=== PATIENT | male | born 1980 | race Hispanic/Latino ===

== ENCOUNTER 2022-09-01 09:20 | Emergency (ER) | payer OTHER ==
[~2022-09-01] VITALS: Ht 165.1 cm; Wt 113.4 kg
[2022-09-01 09:22] VITALS: BP 131/78
[2022-09-01 09:51] LABS: BASOPHILS % (AUTO) 0.4 % (0.0-5.0); EOSINOPHILS % (AUTO) 1.1 % (0.0-8.0); HEMATOCRIT 41.4 % (42-54); LYMPHOCYTES % (AUTO) 33.4 % (21.0-51.0); MEAN CORPUSCULAR HEMOGLOBIN 29.4 pg (27.0-33.0); MEAN CORPUSCULAR HGB CONC 34.5 g/dL (32.0-36.0); MONOCYTES % (AUTO) 6.1 % (3.0-13.0); NEUTROPHILS % (AUTO) 58.8 % (40.0-77.0); PLATELET COUNT (AUTO) 219 K/uL (130-400); RED BLOOD CELL COUNT(AUTO) 4.87 MIL/uL (4.50-6.20); RED CELL DISTRIBUTION WIDTH 12.7 % (11.0-15.5); WHITE BLOOD COUNT (AUTO) 8.3 K/uL (4.8-10.8)
[2022-09-01 10:00] LABS: CREATININE 1.3 mg/dL (0.5-1.5); POTASSIUM 3.8 mmol/L (3.5-5.1)
[2022-09-01 10:04] LABS: ALBUMIN 4.2 g/dL (3.5-5.0); TOTAL PROTEIN, SERUM 8.1 g/dL (6.0-8.3)
[2022-09-01 10:05] LABS: APPEARANCE,URINE CLEAR (CLEAR); BILIRUBIN,URINE NEGATIVE (NEGATIVE); COLOR,URINE COLORLESS (YELLOW); GLUCOSE, URINE (UA) NEGATIVE (NEGATIVE); KETONES,URINE NEGATIVE (NEGATIVE); LEUKOCYTE ESTERASE ,URINE NEGATIVE Leu/uL (NEGATIVE); NITRATE,URINE NEGATIVE (NEGATIVE); OCCULT BLOOD,URINE NEGATIVE (NEGATIVE); PROTEIN,URINE NEGATIVE (NEGATIVE); SQUAMOUS EPITHELIAL CELL,UR RARE /HPF (0-2); UROBILINOGEN,URINE 0.2 mg/dL (0.2-1.0); WBC,URINE 0-1 /HPF (0-1)
[2022-09-01] MEDS ORDERED: NAPR-1196 PO (11:59)
[2022-09-01] MEDS ORDERED: AMOX1TAB16 PO (11:59)
[2022-09-01] MEDS ORDERED: AMOX/CLAV 875/125MG TAB PO ONE (12:00)
== END 2022-09-01 12:11 | disposition home or self-care (01) ==
LOC: EDH 09:20
DX: K52.9 Noninfective gastroenteritis and colitis, unspecified (principal); J45.909 Unspecified asthma, uncomplicated; E11.9 Type 2 diabetes mellitus without complications; E78.00 Pure hypercholesterolemia, unspecified; I10 Essential (primary) hypertension; Z98.890 Other specified postprocedural states
CPT/HCPCS: 36415; 74176; 80053; 81001; 83690; 85025

== ENCOUNTER 2023-01-04 23:51 | Emergency (ER) | payer BC, OTHER ==
[~2023-01-04] VITALS: Ht 165.1 cm; Wt 116.1 kg
[~2023-01-04 23:51] MED LIST: AMOX1TAB16 PO; NAPR-1196 PO
[2023-01-05 00:54] LABS: BASOPHILS % (AUTO) 0.3 % (0.0-5.0); EOSINOPHILS % (AUTO) 1.2 % (0.0-8.0); HEMATOCRIT 36.9 % (42-54); MEAN CORPUSCULAR HGB CONC 33.9 g/dL (32.0-36.0); MEAN CORPUSCULAR VOLUME 88.7 fL (79-99); MONOCYTES % (AUTO) 6.3 % (3.0-13.0); NEUTROPHILS % (AUTO) 71.6 % (40.0-77.0); PLATELET COUNT (AUTO) 232 K/uL (130-400); RED BLOOD CELL COUNT(AUTO) 4.16 MIL/uL (4.50-6.20); RED CELL DISTRIBUTION WIDTH 13.1 % (11.0-15.5); WHITE BLOOD COUNT (AUTO) 9.6 K/uL (4.8-10.8)
[2023-01-05 01:03] LABS: CREATININE 1.6 mg/dL (0.5-1.5); POTASSIUM 3.6 mmol/L (3.5-5.1)
[2023-01-05 01:08] LABS: ALBUMIN 3.8 g/dL (3.5-5.0); TOTAL PROTEIN, SERUM 7.1 g/dL (6.0-8.3)
[2023-01-05 01:17] LABS: APPEARANCE,URINE CLEAR (CLEAR); BILIRUBIN,URINE NEGATIVE (NEGATIVE); COLOR,URINE COLORLESS (YELLOW); GLUCOSE, URINE (UA) NEGATIVE (NEGATIVE); KETONES,URINE NEGATIVE (NEGATIVE); LEUKOCYTE ESTERASE ,URINE NEGATIVE Leu/uL (NEGATIVE); NITRATE,URINE NEGATIVE (NEGATIVE); OCCULT BLOOD,URINE NEGATIVE (NEGATIVE); PROTEIN,URINE NEGATIVE (NEGATIVE); UROBILINOGEN,URINE 0.2 mg/dL (0.2-1.0)
[2023-01-05 03:48] VITALS: BP 142/87
== END 2023-01-05 04:35 | disposition home or self-care (01) ==
LOC: EDH 23:51
DX: R68.83 Chills (without fever) (principal); T50.905A Adverse effect of unspecified drugs, medicaments and biological substances, initial encounter; I10 Essential (primary) hypertension; E11.9 Type 2 diabetes mellitus without complications; Z79.1 Long term (current) use of non-steroidal anti-inflammatories (NSAID); Z79.2 Long term (current) use of antibiotics; Y92.89 Other specified places as the place of occurrence of the external cause
CPT/HCPCS: 36415; 80053; 81003; 85025

== ENCOUNTER 2023-03-12 08:29 | Emergency (ER) | payer BC ==
[~2023-03-12] VITALS: Ht 165.1 cm; Wt 120.2 kg
[2023-03-12 08:34] VITALS: BP 148/89
[2023-03-12] MEDS ORDERED: KETOROLAC 15MG/ML VIAL (15MG/ML) IV ONE (09:00)
[2023-03-12] MEDS ORDERED: 0.9%NACL 1000ML 1,000 ML IV ONE (09:00)
[2023-03-12 09:03] LABS: BASOPHILS % (AUTO) 0.4 % (0.0-5.0); HEMATOCRIT 40.2 % (42-54); LYMPHOCYTES % (AUTO) 38.8 % (21.0-51.0); MEAN CORPUSCULAR HEMOGLOBIN 30.1 pg (27.0-33.0); MEAN CORPUSCULAR HGB CONC 34.6 g/dL (32.0-36.0); MONOCYTES % (AUTO) 7.2 % (3.0-13.0); NEUTROPHILS % (AUTO) 51.3 % (40.0-77.0); PLATELET COUNT (AUTO) 192 K/uL (130-400); RED BLOOD CELL COUNT(AUTO) 4.62 MIL/uL (4.50-6.20); RED CELL DISTRIBUTION WIDTH 12.9 % (11.0-15.5); WHITE BLOOD COUNT (AUTO) 6.9 K/uL (4.8-10.8)
[2023-03-12 09:09] LABS: APPEARANCE,URINE CLEAR (CLEAR); BILIRUBIN,URINE NEGATIVE (NEGATIVE); COLOR,URINE COLORLESS (YELLOW); GLUCOSE, URINE (UA) NEGATIVE (NEGATIVE); KETONES,URINE NEGATIVE (NEGATIVE); LEUKOCYTE ESTERASE ,URINE NEGATIVE Leu/uL (NEGATIVE); NITRATE,URINE NEGATIVE (NEGATIVE); OCCULT BLOOD,URINE NEGATIVE (NEGATIVE); PH,URINE 5.5 (5.0-8.0); PROTEIN,URINE NEGATIVE (NEGATIVE); UROBILINOGEN,URINE 0.2 mg/dL (0.2-1.0)
[2023-03-12 09:12] LABS: CREATININE 1.4 mg/dL (0.5-1.5); POTASSIUM 3.9 mmol/L (3.5-5.1)
[2023-03-12 09:16] LABS: ALBUMIN 4.1 g/dL (3.5-5.0); TOTAL PROTEIN, SERUM 7.6 g/dL (6.0-8.3)
[2023-03-12] MEDS ORDERED: METH-812 PO (09:44)
[2023-03-12] MEDS ORDERED: DICL75TA5 PO (09:44)
== END 2023-03-12 10:10 | disposition home or self-care (01) ==
LOC: EDH 08:51
DX: M54.50 Low back pain, unspecified (principal); M54.16 Radiculopathy, lumbar region; I10 Essential (primary) hypertension; E78.00 Pure hypercholesterolemia, unspecified; E11.9 Type 2 diabetes mellitus without complications; M19.90 Unspecified osteoarthritis, unspecified site
CPT/HCPCS: 99284; 96374; 74150; 96361; 80053; 83690; 85025; 81003; 36415; J7030; J1885

== ENCOUNTER 2023-03-26 22:51 | Emergency (ER) | payer BC ==
[~2023-03-26] VITALS: Ht 165.1 cm; Wt 121.6 kg
[~2023-03-26 22:51] MED LIST changes: +DICL75TA5 PO; +METH-812 PO
[2023-03-26 23:29] LABS: CREATININE 1.3 mg/dL (0.5-1.5); POTASSIUM 3.7 mmol/L (3.5-5.1)
[2023-03-26 23:33] LABS: APPEARANCE,URINE CLEAR (CLEAR); BILIRUBIN,URINE NEGATIVE (NEGATIVE); COLOR,URINE COLORLESS (YELLOW); GLUCOSE, URINE (UA) NEGATIVE (NEGATIVE); KETONES,URINE NEGATIVE (NEGATIVE); LEUKOCYTE ESTERASE ,URINE NEGATIVE Leu/uL (NEGATIVE); NITRATE,URINE NEGATIVE (NEGATIVE); PROTEIN,URINE NEGATIVE (NEGATIVE); UROBILINOGEN,URINE 0.2 mg/dL (0.2-1.0)
[2023-03-26 23:34] LABS: ALBUMIN 4.3 g/dL (3.5-5.0); TOTAL PROTEIN, SERUM 7.8 g/dL (6.0-8.3)
[2023-03-26 23:37] LABS: OCCULT BLOOD,URINE NEGATIVE (NEGATIVE)
[2023-03-27] MEDS ORDERED: MORPHINE 4 MG SYG IVP ONE
[2023-03-27] MEDS ORDERED: 0.9%NACL 1000ML 1,000 ML IV ONE
[2023-03-27] MEDS ORDERED: ONDANSETRON 4MG INJ IVP ONE
[2023-03-27 00:45] LABS: BASOPHILS % (AUTO) 0.4 % (0.0-5.0); EOSINOPHILS % (AUTO) 2.5 % (0.0-8.0); HEMATOCRIT 37.9 % (42-54); LYMPHOCYTES % (AUTO) 38.7 % (21.0-51.0); MEAN CORPUSCULAR HEMOGLOBIN 29.8 pg (27.0-33.0); MEAN CORPUSCULAR HGB CONC 34.6 g/dL (32.0-36.0); MEAN CORPUSCULAR VOLUME 86.1 fL (79-99); MONOCYTES % (AUTO) 8.2 % (3.0-13.0); NEUTROPHILS % (AUTO) 50.1 % (40.0-77.0); PLATELET COUNT (AUTO) 194 K/uL (130-400); RED CELL DISTRIBUTION WIDTH 12.6 % (11.0-15.5); WHITE BLOOD COUNT (AUTO) 7.7 K/uL (4.8-10.8)
[2023-03-27] MEDS ORDERED: FAMO20TA8 PO (00:48)
[2023-03-27 00:53] VITALS: BP 156/88
== END 2023-03-27 01:04 | disposition home or self-care (01) ==
LOC: EDH 22:51
DX: K29.70 Gastritis, unspecified, without bleeding (principal); E78.00 Pure hypercholesterolemia, unspecified; I10 Essential (primary) hypertension; J45.909 Unspecified asthma, uncomplicated
CPT/HCPCS: 99284; 96374; 76705; 71045; 96361; 96375; 84484; 80053; 83690; 85025; 81003; 36415 ×2; 93005; J7030; J2405; J2270

== ENCOUNTER 2023-10-01 13:13 | Emergency (ER) | payer BC, OTHER ==
[~2023-10-01] VITALS: Ht 165.1 cm; Wt 121.6 kg
[~2023-10-01 13:13] MED LIST changes: +FAMO20TA8 PO
[2023-10-01 13:26] VITALS: BP 157/85; PULSE 86; RESP 18
[2023-10-01 14:49] LABS: BASOPHILS # (AUTO) 0.03 K/uL (0.00-0.20); BASOPHILS % (AUTO) 0.3 % (0.0-5.0); EOSINOPHILS # (AUTO) 0.09 K/uL (0.00-0.70); EOSINOPHILS % (AUTO) 0.8 % (0.0-8.0); HEMATOCRIT 40.8 % (42-54); IMMATURE GRANULOCYTE ABSOLUTE 0.05 K/uL (0-1); LYMPHOCYTES # (AUTO) 3.5 K/uL (1.0-4.8); LYMPHOCYTES % (AUTO) 31.3 % (21.0-51.0); MEAN CORPUSCULAR HEMOGLOBIN 29.2 pg (27.0-33.0); MEAN CORPUSCULAR HGB CONC 33.6 g/dL (32.0-36.0); MONOCYTES # (AUTO) 0.7 K/uL (0.1-1.0); MONOCYTES % (AUTO) 6.2 % (3.0-13.0); NEUTROPHILS # (AUTO) 6.8 K/uL (1.8-7.7); PLATELET COUNT (AUTO) 256 K/uL (130-400); RED BLOOD CELL COUNT(AUTO) 4.69 MIL/uL (4.50-6.20); RED CELL DISTRIBUTION WIDTH 12.7 % (11.0-15.5); WHITE BLOOD COUNT (AUTO) 11.2 K/uL (4.8-10.8)
[2023-10-01 14:51] LABS: APPEARANCE,URINE CLEAR (CLEAR); BILIRUBIN,URINE NEGATIVE (NEGATIVE); COLOR,URINE COLORLESS (YELLOW); GLUCOSE, URINE (UA) NEGATIVE (NEGATIVE); KETONES,URINE NEGATIVE (NEGATIVE); LEUKOCYTE ESTERASE ,URINE NEGATIVE Leu/uL (NEGATIVE); NITRATE,URINE NEGATIVE (NEGATIVE); PH,URINE 5.5 (5.0-8.0); PROTEIN,URINE NEGATIVE (NEGATIVE); UROBILINOGEN,URINE 0.2 mg/dL (0.2-1.0)
[2023-10-01 14:53] LABS: ADD UA MICROSCOPIC YES
[2023-10-01 14:54] LABS: SQUAMOUS EPITHELIAL CELL,UR RARE /HPF (0-2); WBC,URINE 0-1 /HPF (0-1)
[2023-10-01 14:59] LABS: CREATININE 1.6 mg/dL (0.5-1.5); POTASSIUM 3.7 mmol/L (3.5-5.1)
[2023-10-01 15:03] LABS: ALBUMIN 3.9 g/dL (3.5-5.0); BILIRUBIN,TOTAL 0.3 mg/dL (0.2-1.0); TOTAL PROTEIN, SERUM 7.8 g/dL (6.0-8.3)
[2023-10-01] MEDS ORDERED: CYCL-309 PO (17:29)
[2023-10-01] MEDS ORDERED: IBUP-2077 PO (17:29)
== END 2023-10-01 17:42 | disposition home or self-care (01) ==
LOC: EDH 13:13
DX: G89.29 Other chronic pain (principal); M54.50 Low back pain, unspecified; E11.65 Type 2 diabetes mellitus with hyperglycemia; D72.829 Elevated white blood cell count, unspecified; I10 Essential (primary) hypertension; E11.9 Type 2 diabetes mellitus without complications; E66.9 Obesity, unspecified; E78.00 Pure hypercholesterolemia, unspecified; Z79.899 Other long term (current) drug therapy; Z98.890 Other specified postprocedural states
CPT/HCPCS: 36415; 74176; 80053; 81001; 83690; 85025

== ENCOUNTER 2024-03-12 02:44 | Emergency (ER) | payer BC, OTHER ==
[~2024-03-12] VITALS: Ht 165.1 cm; Wt 115.7 kg
[~2024-03-12 02:44] MED LIST changes: +CYCL-309 PO; +IBUP-2077 PO
[2024-03-12] MEDS ORDERED: MELO10CA3 PO (03:50)
[2024-03-12 04:11] VITALS: BP 142/82; PULSE 84; RESP 16; O2SAT 99
== END 2024-03-12 04:12 | disposition home or self-care (01) ==
LOC: EDH 02:44
DX: S80.01XA Contusion of right knee, initial encounter (principal); E11.9 Type 2 diabetes mellitus without complications; E66.9 Obesity, unspecified; E78.00 Pure hypercholesterolemia, unspecified; I10 Essential (primary) hypertension; X58.XXXA Exposure to other specified factors, initial encounter; Y93.89 Activity, other specified; Y92.89 Other specified places as the place of occurrence of the external cause; Y99.8 Other external cause status

== ENCOUNTER 2025-01-03 13:59 | Emergency (ER) | payer BC ==
[~2025-01-03] VITALS: Ht 165.1 cm; Wt 117.9 kg
[~2025-01-03 13:59] MED LIST changes: -AMOX1TAB16 PO; -CYCL-309 PO; +CYCL10TA16 PO; -DICL75TA5 PO; -FAMO20TA8 PO; -IBUP-2077 PO; +KETO10TA2 PO; +MELO10CA3 PO; -METH-812 PO; -NAPR-1196 PO
--- NOTE | 2025-01-03 14:27 | ERN ---
ED Note History of Present Illness Stated Complaint: ABDOMINAL PAIN Chief Complaint: Abdominal Pain Time Seen by MD: 14:04 Dictation: PATIENT IS A 44-YEAR-OLD DIABETIC MALE COMING IN TODAY WITH COMPLAINTS OF EPIGASTRIC PAIN THAT RADIATES TO HIS RIGHT UPPER QUADRANT WITH NAUSEA VOMITING ONSET WAS SATURDAY. HE STATES HE HAS A OCCASIONAL LEFT UPPER QUADRANT PAIN. NO FEVER NO CHILLS. STATES HIS BLOOD SUGAR WAS 1232 DAYS AGO IN HIS COMPLIANT WITH HIS MEDICATIONS. HE DID NOT GO SEE HIS PRIMARY CARE DOCTOR Allergies: Coded Allergies: No Known Drug Allergies (Verified Allergy, Unknown, 09/01/22) Home Meds Active Scripts Dicyclomine HCl (Bentyl) 20 Mg Tab, 20 MG PO Q6HPRN PRN for ABDOMINAL CRAMPS, #30 TAB Prov:PASCALE BYERS NP 01/03/25 Omeprazole (Omeprazole) 40 Mg Capsule.dr, 1 CAP PO DAILY for 30 Days, #30 CAP 0 Refills Prov:PASCALE BYERS NP 01/03/25 Cyclobenzaprine HCl (Flexeril) 10 Mg Tab, 10 MG PO BID for muscle sstiffness for 5 Days, #10 TAB 0 Refills Prov:MAIA GARCIA 09/16/24 Ketorolac Tromethamine (Ketorolac Tromethamine) 10 Mg Tablet, 10 MG PO BID for 5 Days, #10 TAB Prov:MAIA GARCIA 09/16/24 Meloxicam, Submicronized (Meloxicam) 10 Mg Capsule, 10 MG PO DAILY, #30 CAP Prov:YONATAN EVANS MD 03/12/24 Past Medical History Past Medical History: Diabetes-Type II, High Cholesterol, Hypertension, Other Additional Past Medical Hx: Lumbar Spine Herniated Discs, Obesity Surgical History: Other Surgical History Other: EYE,COLONOSCOPY,EGD Family History: Negative Social History: Negative, Lives with family RN Note Reviewed/Agreed w/PFSH: Yes Review of System Dictation CONSTITUTIONAL: NEGATIVE EXCEPT FOR HPI HEAD/FACE: NEGATIVE EXCEPT FOR HPI EENT: NEGATIVE EXCEPT FOR HPI RESPIRATORY: NEGATIVE EXCEPT FOR HPI GASTROINTESTINAL/ABDOMINAL: NEGATIVE EXCEPT FOR HPI EPIGASTRIC PAIN THAT RADIATES TO RIGHT UPPER QUADRANT NAUSEA VOMITING GENITOURINARY: NEGATIVE EXCEPT FOR HPI MUSCULOSKELETAL: NEGATIVE EXCEPT FOR HPI INTEGUMENTARY: NEGATIVE EXCEPT FOR HPI NEUROLOGICAL/PSYCH: NEGATIVE EXCEPT FOR HPI HEMATOLOGIC/LYMPHATIC: NEGATIVE EXCEPT FOR HPI ALL SYSTEMS NEGATIVE, EXCEPT NOTED ABOVE. 13 POINT REVIEW OF SYSTEMS ASSESSED AND ALL NEGATIVE EXCEPT FOR ABOVE. Initial Vital Sign VS Vital Signs Date Time Temp Pulse Resp B/P (MAP) Pulse Ox O2 Delivery O2 Flow Rate FiO2 01/03/25 14:01 98.2 76 18 135/74 98 Room Air Physical Exam Dictation VITAL SIGNS REVIEWED GENERAL APPEARANCE: ALERT, ORIENTED X 3, NO ACUTE DISTRESS, WELL DEVELOPED, NOURISHED. MORBID OBESITY HEAD AND FACE: NON-TRAUMATIC. EYES: PERRL, PINK CONJUNCTIVAS, EYELID NO TRAUMA, ANTERIOR CHAMBER WITH ARCUS SENILIS. EARS: PINNAS INTACT AND NO SIGNS OF TRAUMA OR ERYTHEMA EAR CANALS CLEAR AND NO DISCHARGE TM NO ERYTHEMA NOSE: NO DISCHARGE, NO BLEEDING. OROPHARYNX: MOUTH NORMAL, TONGUE PINK, PHARYNX CLEAR,NO ERYTHEMA, TONSILS NO EXUDATES, NO ABSCESSES NOTED, MUCOUS MEMBRANE MOIST NECK: SUPPLE, NON-TENDER, NO THYROMEGALY, NO MASSES, NO JVD, NO BRUITS BREAST:DEFERRED CHEST:NO TENDERNESS, NO CREPITUS, NO PARADOXICAL MOVEMENT, NO RETRACTIONS LUNGS:CLEAR, WELL-VENTILATED, SYMMETRIC, NO RALES, NO WHEEZING, NO RHONCHI, NO STRIDOR, GOOD BREATH SOUNDS BILATERALLY HEART: REGULAR RATE, REGULAR RHYTHM, NO MURMUR, NO GALLOPS VASCULAR: NO PERIPHERAL EDEMA, ABDOMEN: SOFT, POSITIVE BOWEL SOUNDS, NONDISTENDED, NO GUARDING, MILD EPIGASTRIC TENDERNESS, NEGATIVE RUSSO'S SIGN NEGATIVE REBOUND TENDERNESS RECTAL: DEFERRED GENITAL: DEFERRED NEUROLOGICAL: NORMAL SPEECH, MOTOR FUNCTION INTACT, SENSORY FUNCTION INTACT MUSCULOSKELETAL: NECK NONTENDER, FULL RANGE OF MOTION, BACK NONTENDER, FULL RANGE OF MOTION, EXTREMITIES: NONTENDER, FULL RANGE OF MOTION SKIN: COLOR PINK, DRY, NO TURGOR, NO RASH, NO LACERATIONS, NO ABRASIONS, NO CONTUSIONS. LYMPHATIC: DEFERRED Results (Laboratory/Radiology) Laboratory/Radiology Laboratory Tests Test 01/03/25 15:46 01/03/25 16:02 White Blood Count 8.3 K/uL (4.8-10.8) Red Blood Count 4.59 MIL/uL (4.50-6.20) Hemoglobin 13.9 g/dL (14.0-18.0) L Hematocrit 40.1 % (42-54) L Mean Corpuscular Volume 87.4 fL (79-99) Mean Corpuscular Hemoglobin 30.3 pg (27.0-33.0) Mean Corpuscular Hemoglobin Concent 34.7 g/dL (32.0-36.0) Red Cell Distribution Width 13.1 % (11.0-15.5) Platelet Count 233 K/uL (130-400) Mean Platelet Volume 10.1 fL (7.5-10.5) Immature Granulocyte % (Auto) 0.2 % (0-1) Neutrophils (%) (Auto) 56.3 % (40.0-77.0) Lymphocytes (%) (Auto) 35.5 % (21.0-51.0) Monocytes (%) (Auto) 6.8 % (3.0-13.0) Eosinophils (%) (Auto) 1.0 % (0.0-8.0) Basophils (%) (Auto) 0.2 % (0.0-5.0) Neutrophils # (Auto) 4.7 K/uL (1.8-7.7) Lymphocytes # (Auto) 3.0 K/uL (1.0-4.8) Monocytes # (Auto) 0.6 K/uL (0.1-1.0) Eosinophils # (Auto) 0.08 K/uL (0.00-0.70) Basophils # (Auto) 0.02 K/uL (0.00-0.20) Absolute Immature Granulocyte (auto 0.02 K/uL (0-1) Nucleated Red Blood Cells 0.0 % (0.0-0.19) Sodium Level 142 mmol/L (136-145) Potassium Level 3.6 mmol/L (3.5-5.1) Chloride Level 103 mmol/L (101-111) Carbon Dioxide Level 34 mmol/L (21-32) H Blood Urea Nitrogen 27 mg/dL (7-18) H Creatinine 1.3 mg/dL (0.5-1.3) Glomerular Filtration Rate Calc 69 mL/min (>90) Random Glucose 185 mg/dL (70-105) H Total Calcium 8.7 mg/dL (8.5-10.1) Lipase 43 U/L (16-77) Urine Color LIGHT-YELLOW (YELLOW) Urine Appearance CLEAR (CLEAR) Urine pH 5.5 (5.0-8.0) Urine Specific [place] 1.019 (1.001-1.031) Urine Protein NEGATIVE mg/dL (NEGATIVE) Urine Glucose (UA) NEGATIVE mg/dL (NEGATIVE) Urine Ketones NEGATIVE mg/dL (NEGATIVE) Urine Occult Blood SMALL (NEGATIVE) H Urine Nitrate NEGATIVE (NEGATIVE) Urine Bilirubin NEGATIVE mg/dL (NEGATIVE) Urine Urobilinogen 0.2 mg/dL (0.2-1.0) Urine Leukocyte Esterase NEGATIVE Zacarias/uL Urine RBC 0-1 /HPF (0-1) Urine WBC None /HPF (0-1) Urine Bacteria None /HPF (None Seen) US ABDOMINAL RUQ\E\LTD HISTORY: Adominal Pain TECHNIQUE: US ABDOMINAL RUQ\E\LTD. FINDINGS: LIVER: Diffuse increased echogenicity of the liver is seen suggestive of hepatic parenchymal disease, such as hepatic steatosis. Liver measures 18 cm. GALLBLADDER: Contracted gallbladder. No gallstone is seen. There is mild wall thickening. CBD: Measures up to 0.5cm. PANCREAS: The pancreas was not well visualized due to overlying bowel gas. RIGHT KIDNEY: measures 10cm in length. No hydronephrosis or calculi. IMPRESSION: Hepatomegaly with hepatic steatosis. Contracted gallbladder. No gallstone is seen. Labs Reviewed?: Yes ED Course ED Course Orders Procedure Category Date Status Time Cbc With Differential LAB 01/03/25 Complete 14:23 Urinalysis Profile LAB 01/03/25 Complete 14:23 Us Abdominal Ruq\Ltd US 01/03/25 Resulted 14:23 Lipase LAB 01/03/25 Complete 14:23 Basic Metabolic Panel LAB 01/03/25 Complete 14:23 0.9%Nacl 1000ml (Ns PHA 01/03/25 Complete 1000ml) 14:30 Ketorolac PHA 01/03/25 Complete Tromethamine 30mg/Ml 14:30 Ondansetron 4mg Inj PHA 01/03/25 Complete (Zofran 4mg Inj) 14:30 Current Medications Medications (Trade) Dose Ordered Sig/Harman Route PRN Reason Start Time Stop Time Status Last Admin Dose Admin Ketorolac Tromethamine (toRADol) 30 mg ONCE ONCE IVP 01/03/25 14:30 01/03/25 16:49 DC Ondansetron HCl (zoFRAN 4MG INJ) 4 mg ONCE ONCE IVP 01/03/25 14:30 01/03/25 16:49 DC Sodium Chloride 1,000 ml @ 0 mls/hr ONCE ONCE IV 01/03/25 14:30 01/03/25 16:49 DC Vital Signs Date Time Temp Pulse Resp B/P (MAP) Pulse Ox O2 Delivery O2 Flow Rate FiO2 01/03/25 14:01 98.2 76 18 135/74 98 Room Air 1645/WORKUP IS NEGATIVE. PATIENT HAS A FATTY LIVER PATIENT WILL BE DISCHARGED HOME WITH FATTY LIVER DISEASE AND BILIARY COLIC SYMPTOMS. HE WILL BE SENT HOME WITH BENTYL AND OMEPRAZOLE TOLD TO SEE HIS PRIMARY CARE DOCTOR SATURDAY WITHOUT FAIL FOR FOLLOW UP AND MANAGEMENT Medical Decision Making MDM MEDICAL DISCHARGE MAKING BASED ON BASIC LABS FOR ABDOMINAL PAIN AND ULTRASOUND RIGHT UPPER QUADRANT. ULTRASOUND DEMONSTRATES FATTY LIVER ONLY. LABS UNREMARKABLE, NO ELEVATED LIPASE. PATIENT DISCHARGED HOME WITH BENTYL AND OMEPRAZOLE TOLD TO SEE HIS PRIMARY CARE DOCTOR. DX & DISP Disposition: Discharge Departure Impression: Primary Impression: Biliary colic symptom Additional Impressions: Fatty liver, Uncontrolled diabetes mellitus, Stage 2 chronic kidney disease Condition: Stable Scripts Dicyclomine HCl (Bentyl) 20 Mg Tab 20 MG PO Q6HPRN PRN for ABDOMINAL CRAMPS, #30 TAB Prov: PASCALE BYERS BAIT PACKER 01/03/25 Omeprazole (Omeprazole) 40 Mg Capsule.dr 1 CAP PO DAILY for 30 Days, #30 CAP 0 Refills Prov: PASCALE BYERS NP 01/03/25 Additional Instructions: FOLLOW-UP WITH PRIMARY CARE PROVIDER IN 1 TO 2 DAYS. TAKE MEDICATIONS DIRECTED HERE IN THE EMERGENCY ROOM. OKAY TO CONTINUE HOME MEDICATIONS UNLESS OTHERWISE DISCUSSED DURING YOUR VISIT IN THE EMERGENCY ROOM TODAY. RETURN TO YOUR NEAREST EMERGENCY ROOM IF SYMPTOMS WORSEN OR IF THERE IS NO IMPROVEMENT. CALL 911 IF YOU NEED IMMEDIATE ASSISTANCE. TAKE TYLENOL OR MOTRIN [id number] NEEDED AND IF NO CONTRAINDICATIONS ARE PRESENT. INCREASE ORAL HYDRATION. A WOUND CULTURE OR URINE CULTURE WAS ORDERED HERE IN THE EMERGENCY ROOM DEPARTMENT PLEASE FOLLOW-UP WITH PRIMARY CARE PROVIDER AND ADVISE THEM TO GET REPEAT PORTS FROM OUR FACILITY. IF YOU HAD ANY RENITA WRAP/SPLINTS THAT WERE APPLIED HERE, PLEASE DO NOT REMOVE THEM UNTIL YOU SEE YOUR PRIMARY CARE OR SPECIALTY. FOLLOW A BLAND, LOW-FAT DIET WITH WATER FOR FLUIDS ONLY. NO SODA POP, NO ICE TEA, NO SPICY FOODS, NO ALCOHOL UNTIL CLEARED BY YOUR DOCTOR. Referrals: FLORIN SHEEHAN MD (PCP) Time of Disposition: 16:44 I have reviewed the case, and I agree with, Diagnosis and Plan PASCALE BYERS NP Jan 03, 2025 14:27
[2025-01-03] MEDS ORDERED: 0.9%NACL 1000ML 1,000 ML IV ONE (14:30)
[2025-01-03] MEDS ORDERED: ketOROlac 30MG VIAL (30MG/ML) IVP ONE (14:30)
[2025-01-03] MEDS ORDERED: ondanSETRON 4MG INJ IVP ONE (14:30)
--- NOTE | 2025-01-03 15:17 | HMCIMG ---
US ABDOMINAL RUQ\E\LTD HISTORY: Adominal Pain TECHNIQUE: US ABDOMINAL RUQ\E\LTD. FINDINGS: LIVER: Diffuse increased echogenicity of the liver is seen suggestive of hepatic parenchymal disease, such as hepatic steatosis. Liver measures 18 cm. GALLBLADDER: Contracted gallbladder. No gallstone is seen. There is mild wall thickening. CBD: Measures up to 0.5cm. PANCREAS: The pancreas was not well visualized due to overlying bowel gas. RIGHT KIDNEY: measures 10cm in length. No hydronephrosis or calculi. IMPRESSION: Hepatomegaly with hepatic steatosis. Contracted gallbladder. No gallstone is seen.
[2025-01-03 15:55] LABS: BASOPHILS # (AUTO) 0.02 K/uL (0.00-0.20); BASOPHILS % (AUTO) 0.2 % (0.0-5.0); EOSINOPHILS # (AUTO) 0.08 K/uL (0.00-0.70); HEMATOCRIT 40.1 % (42-54); IMMATURE GRANULOCYTE ABSOLUTE 0.02 K/uL (0-1); LYMPHOCYTES % (AUTO) 35.5 % (21.0-51.0); MEAN CORPUSCULAR HEMOGLOBIN 30.3 pg (27.0-33.0); MEAN CORPUSCULAR HGB CONC 34.7 g/dL (32.0-36.0); MEAN CORPUSCULAR VOLUME 87.4 fL (79-99); MONOCYTES # (AUTO) 0.6 K/uL (0.1-1.0); MONOCYTES % (AUTO) 6.8 % (3.0-13.0); NEUTROPHILS # (AUTO) 4.7 K/uL (1.8-7.7); NEUTROPHILS % (AUTO) 56.3 % (40.0-77.0); PLATELET COUNT (AUTO) 233 K/uL (130-400); RED BLOOD CELL COUNT(AUTO) 4.59 MIL/uL (4.50-6.20); RED CELL DISTRIBUTION WIDTH 13.1 % (11.0-15.5); WHITE BLOOD COUNT (AUTO) 8.3 K/uL (4.8-10.8)
[2025-01-03 16:02] LABS: CREATININE 1.3 mg/dL (0.5-1.3); POTASSIUM 3.6 mmol/L (3.5-5.1)
[2025-01-03 16:18] LABS: ADD UA MICROSCOPIC YES; APPEARANCE,URINE CLEAR (CLEAR); BILIRUBIN,URINE NEGATIVE (NEGATIVE); COLOR,URINE LIGHT-YELLOW (YELLOW); GLUCOSE, URINE (UA) NEGATIVE (NEGATIVE); KETONES,URINE NEGATIVE (NEGATIVE); LEUKOCYTE ESTERASE ,URINE NEGATIVE Leu/uL (NEGATIVE); NITRATE,URINE NEGATIVE (NEGATIVE); OCCULT BLOOD,URINE SMALL (NEGATIVE); PH,URINE 5.5 (5.0-8.0); PROTEIN,URINE NEGATIVE (NEGATIVE); UROBILINOGEN,URINE 0.2 mg/dL (0.2-1.0)
[2025-01-03 16:19] LABS: MUCUS,URINE RARE LPF (None Seen); RBC,URINE 0-1 /HPF (0-1)
[2025-01-03] MEDS ORDERED: DICY20TA2 PO (16:47)
[2025-01-03] MEDS ORDERED: OMEP40CA21 PO (16:47)
[2025-01-03] MEDS: DICYCLOMINE HCL 10 MG/5 ML ML PO ONE (17:40)
[2025-01-03] MEDS: MAG/ALUM/SIMETH 30 ML UDCUP PO ONE (17:40)
[2025-01-03] MEDS: LIDOCAINE HCL 2% VISCOUS 15 ML UDCUP PO ONE (17:40)
--- NOTE | 2025-01-03 17:45 | NUR ---
PT BROUGHT INTO INTERNAL WAITING AREA FOR MED PASS AND DC INSTRUCTIONS
[2025-01-03 17:48] VITALS: BP 130/60; PULSE 69; RESP 20; TEMP 98.4; O2SAT 98
== END 2025-01-03 17:50 | disposition home or self-care (01) ==
LOC: EDH 13:59
DX: K80.50 Calculus of bile duct without cholangitis or cholecystitis without obstruction (principal); K76.0 Fatty (change of) liver, not elsewhere classified; I12.9 Hypertensive chronic kidney disease with stage 1 through stage 4 chronic kidney disease, or unspecified chronic kidney disease; E11.22 Type 2 diabetes mellitus with diabetic chronic kidney disease; N18.2 Chronic kidney disease, stage 2 (mild); E11.65 Type 2 diabetes mellitus with hyperglycemia; E66.9 Obesity, unspecified; E78.00 Pure hypercholesterolemia, unspecified; Z79.1 Long term (current) use of non-steroidal anti-inflammatories (NSAID); Z79.899 Other long term (current) drug therapy
CPT/HCPCS: 36415; 76705; 80048; 81001; 83690; 85025; 99284

== ENCOUNTER 2025-01-11 14:40 | Emergency (ER) | payer BC ==
[~2025-01-11] VITALS: Ht 165.1 cm; Wt 117.9 kg
[~2025-01-11 14:40] MED LIST changes: +DICY20TA2 PO; +OMEP40CA21 PO
[2025-01-11 14:45] VITALS: BP 126/85; PULSE 89; RESP 16; TEMP 98.2
--- NOTE | 2025-01-11 15:49 | HMCIMG ---
CT ABDOMEN/PELVIS W/O CONTRAST HISTORY: Renal stones COMPARISON: None TECHNIQUE: Multiple sequential axial images of the abdomen and pelvis were obtained from the dome of the diaphragm through symphysis pubis. Patient was not given contrast through intravenous route. Oral contrast was not given. FINDINGS: No pleural effusion is seen bilaterally. There is no evidence of parenchymal disease or pulmonary nodule of the visualized lower lungs. Degenerative changes of the thoracolumbar spine are present. The heart is not enlarged. Liver measures 15 cm. The liver, spleen, adrenal glands and pancreas are unremarkable. There is no evidence of hydronephrosis bilaterally. No evidence of renal stone is seen. Fecal material is seen in the colon. There are normal size retroperitoneal and mesenteric lymph nodes. No ascites is seen. Atherosclerotic changes are present. Pelvic sidewalls are symmetric bilaterally. Bladder is poorly distended. IMPRESSION: 1. No acute findings. CT was performed with one or more following dose reduction techniques: automated exposure control, adjustment of the mA and kv according to patient's size, or use of a iterative reconstruction technique.
--- NOTE | 2025-01-11 17:30 | ERN ---
ED Note History of Present Illness Stated Complaint: BACK PAIN,MULTIPLE COMPLAINTS Chief Complaint: Flank Pain Time Seen by MD: 15:06 Time Seen by Midlevel: 15:06 Dictation: The patient is a 48-year-old male with a history of diabetes, hypertension who presents to the emergency department with right flank pain radiating to the right lower quadrant onset two weeks ago. Patient reports nausea but no vomiting. Denies any hematuria, denies fevers, reports occasional diarrhea and constipation. Patient reports he has some lumbar spine herniated disc. Denies any urinary or fecal incontinence. Patient was seen here and was told he had problems with the gallstones but when he went to his primary doctor he was told he did not have any gallstones. Allergies: Coded Allergies: No Known Drug Allergies (Verified Allergy, Unknown, 09/01/22) Home Meds Active Scripts Dicyclomine HCl (Bentyl) 20 Mg Tab, 20 MG PO Q6HPRN PRN for ABDOMINAL CRAMPS, #30 TAB Prov:PASCALE BYERS NP 01/03/25 Omeprazole (Omeprazole) 40 Mg Capsule.dr, 1 CAP PO DAILY for 30 Days, #30 CAP 0 Refills Prov:PASCALE BYERS NP 01/03/25 Cyclobenzaprine HCl (Flexeril) 10 Mg Tab, 10 MG PO BID for muscle sstiffness for 5 Days, #10 TAB 0 Refills Prov:MAIA GARCIA 09/16/24 Ketorolac Tromethamine (Ketorolac Tromethamine) 10 Mg Tablet, 10 MG PO BID for 5 Days, #10 TAB Prov:MAIA GARCIA 09/16/24 Meloxicam, Submicronized (Meloxicam) 10 Mg Capsule, 10 MG PO DAILY, #30 CAP Prov:YONATAN EVANS MD 03/12/24 Past Medical History Past Medical History: Diabetes-Type II, Gallstones, High Cholesterol, Hypertension, Other Additional Past Medical Hx: Lumbar Spine Herniated Discs, Obesity Surgical History: Other Surgical History Other: EYE,COLONOSCOPY,EGD Family History: Negative Social History: Negative, Lives with family RN Note Reviewed/Agreed w/PFSH: Yes Review of System Dictation Constitutional: Negative for fever,chills, and weight loss Eyes: Negative for injury, pain,redness, and discharge ENT: Negative for injury,pain or swelling Cardiovascular: Negative for chest pain, palpitations, and edema Respiratory: Negative for shortness of breath, cough, and wheezing, Abdomen/GI: Negative for vomiting, diarrhea, and constipation positive for right lower abdominal pain, nausea Back: Negative for injury and pain : Negative for injury, bleeding and discharge positive for right flank pain MS/Extremity: Negative for injury and deformity Skin: Negative for rash, and discoloration Neuro: Negative for headache, weakness, numbness, tingling, and seizure Psych: Negative for suicide ideation, homicidal ideation, and hallucinations Initial Vital Sign VS Vital Signs Date Time Temp Pulse Resp B/P (MAP) Pulse Ox O2 Delivery O2 Flow Rate FiO2 01/11/25 14:45 98.2 89 16 126/85 97 Room Air 0 Physical Exam Dictation Vital Signs reviewed General Appearance: Alert, oriented x 3, no acute distress, well developed, no urished. Head and Face: non-traumatic. Eyes: PERRL, pink conjunctivas, eyelid no trauma, anterior chamber with arcus senilis. Ears: Pinnas intact and no signs of trauma or erythema ear canals clear and no discharge TM no erythema Nose: No discharge, no bleeding. Oropharynx: Mouth normal, tongue pink. pharynx clear,no erythema, tonsils no exudates, no abscesses noted, mucous me mbrane moist Neck: Supple, non-tender, no thyromegaly, no masses, no JVD, no bruits Breast:Deferred Chest:No tenderness, no crepitus, no paradoxical movement, no retractions Lungs:Clear, well-ventilated, symmetric, no rales, no wheezing, no rhonchi, no stridor, good breath sounds bilaterally Heart: Regular rate, regular rhythm, no murmur, no gallops Vascular: no peripheral edema, Abdomen: Soft, positive bowel sounds, nondistended, no guarding, nontender, no rebound, no masses no hepatomegaly, no splenomegaly, no Fraga's sign, no hernias. Rectal: Deferred Genital: Deferred Neurological: Normal speech, motor function intact, sensory function intact Musculoskeletal: Neck nontender, full range of motion, back nontender, full range of motion, Extremities: nontender, full range of motion Skin: Color pink, dry, no turgor, no rash, no lacerations, no abrasions, no contusions. Lymphatic: Deferred Results (Laboratory/Radiology) Laboratory/Radiology Laboratory Tests Test 01/11/25 17:26 01/11/25 18:40 White Blood Count 9.2 K/uL (4.8-10.8) Red Blood Count 4.75 MIL/uL (4.50-6.20) Hemoglobin 14.0 g/dL (14.0-18.0) Hematocrit 41.8 % (42-54) L Mean Corpuscular Volume 88.0 fL (79-99) Mean Corpuscular Hemoglobin 29.5 pg (27.0-33.0) Mean Corpuscular Hemoglobin Concent 33.5 g/dL (32.0-36.0) Red Cell Distribution Width 12.7 % (11.0-15.5) Platelet Count 238 K/uL (130-400) Mean Platelet Volume 10.4 fL (7.5-10.5) Immature Granulocyte % (Auto) 0.2 % (0-1) Neutrophils (%) (Auto) 53.6 % (40.0-77.0) Lymphocytes (%) (Auto) 37.7 % (21.0-51.0) Monocytes (%) (Auto) 7.0 % (3.0-13.0) Eosinophils (%) (Auto) 1.1 % (0.0-8.0) Basophils (%) (Auto) 0.4 % (0.0-5.0) Neutrophils # (Auto) 4.9 K/uL (1.8-7.7) Lymphocytes # (Auto) 3.5 K/uL (1.0-4.8) Monocytes # (Auto) 0.6 K/uL (0.1-1.0) Eosinophils # (Auto) 0.10 K/uL (0.00-0.70) Basophils # (Auto) 0.04 K/uL (0.00-0.20) Absolute Immature Granulocyte (auto 0.02 K/uL (0-1) Nucleated Red Blood Cells 0.0 % (0.0-0.19) Sodium Level 143 mmol/L (136-145) Potassium Level 3.7 mmol/L (3.5-5.1) Chloride Level 104 mmol/L (101-111) Carbon Dioxide Level 32 mmol/L (21-32) Blood Urea Nitrogen 37 mg/dL (7-18) H Creatinine 1.7 mg/dL (0.5-1.3) H Glomerular Filtration Rate Calc 50 mL/min (>90) Random Glucose 137 mg/dL (70-105) H Total Calcium 9.5 mg/dL (8.5-10.1) Total Bilirubin 0.3 mg/dL (0.2-1.0) Direct Bilirubin 0.1 mg/dL (0.0-0.3) Aspartate Amino Transf (AST/SGOT) 16 U/L (10-37) Alanine Aminotransferase (ALT/SGPT) 23 U/L (12-78) Alkaline Phosphatase 103 U/L (50-136) Total Protein 7.8 g/dL (6.0-8.3) Albumin 4.2 g/dL (3.5-5.0) Lipase 56 U/L (16-77) Urine Color LIGHT-YELLOW (YELLOW) Urine Appearance CLEAR (CLEAR) Urine pH 5.0 (5.0-8.0) Urine Specific [place] 1.017 (1.001-1.031) Urine Protein NEGATIVE mg/dL (NEGATIVE) Urine Glucose (UA) NEGATIVE mg/dL (NEGATIVE) Urine Ketones NEGATIVE mg/dL (NEGATIVE) Urine Occult Blood +- (TRACE) (NEGATIVE) H Urine Nitrate NEGATIVE (NEGATIVE) Urine Bilirubin NEGATIVE mg/dL (NEGATIVE) Urine Urobilinogen 0.2 mg/dL (0.2-1.0) Urine Leukocyte Esterase NEGATIVE [place]/uL REASON: R/O KIDNEY STONES, right flank pain ORDERING PHYSICIAN: CAREN VALERIO SANDFILL OPERATOR PROCEDURE: ABD PEL WO - CT ABDOMEN/PELVIS W/O CONTRAST CT ABDOMEN/PELVIS W/O CONTRAST HISTORY: Renal stones COMPARISON: None TECHNIQUE: Multiple sequential axial images of the abdomen and pelvis were obtained from the dome of the diaphragm through symphysis pubis. Patient was not given contrast through intravenous route. Oral contrast was not given. FINDINGS: No pleural effusion is seen bilaterally. There is no evidence of parenchymal disease or pulmonary nodule of the visualized lower lungs. Degenerative changes of the thoracolumbar spine are present. The heart is not enlarged. Liver measures 15 cm. The liver, spleen, adrenal glands and pancreas are unremarkable. There is no evidence of hydronephrosis bilaterally. No evidence of renal stone is seen. Fecal material is seen in the colon. There are normal size retroperitoneal and mesenteric lymph nodes. No ascites is seen. Atherosclerotic changes are present. Pelvic sidewalls are symmetric bilaterally. Bladder is poorly distended. IMPRESSION: 1. No acute findings. Labs Reviewed?: Yes ED Course ED Course Orders Procedure Category Date Status Time Cbc With Differential LAB 01/11/25 Complete 15:18 Urinalysis Profile LAB 01/11/25 In Process 15:18 Ct Abdomen/Pelvis W/O CT 01/11/25 Resulted Contrast 15:18 0.9%Nacl 1000ml (Ns PHA 01/11/25 In Process 1000ml) 15:30 Ketorolac PHA 01/11/25 Complete Tromethamine 30mg/Ml 15:30 Basic Metabolic Panel LAB 01/11/25 Complete 15:18 Lipase LAB 01/11/25 Complete 15:18 Hepatic Function Panel LAB 01/11/25 Complete 15:18 Current Medications Medications (Trade) Dose Ordered Sig/Harman Route PRN Reason Start Time Stop Time Status Last Admin Dose Admin Ketorolac Tromethamine (toRADol) 30 mg ONCE IVP 01/11/25 15:30 01/11/25 19:30 DC 01/11/25 17:57 Sodium Chloride 1,000 ml @ 0 mls/hr ONCE IV 01/11/25 15:30 01/12/25 15:29 01/11/25 17:57 Vital Signs Date Time Temp Pulse Resp B/P (MAP) Pulse Ox O2 Delivery O2 Flow Rate FiO2 01/11/25 14:45 98.2 89 16 126/85 97 Room Air 0 Medical Decision Making MDM The patient is a 48-year-old male with a history of diabetes, hypertension who presents to the emergency department with right flank pain radiating to the right lower quadrant onset two weeks ago. Patient reports nausea but no vomiting. Denies any hematuria, denies fevers, reports occasional diarrhea and constipation. Patient reports he has some lumbar spine herniated disc. Denies any urinary or fecal incontinence. Patient was seen here and was told he had problems with the gallstones but when he went to his primary doctor he was told he did not have any gallstones. CBC showed no leukocytosis, no anemia, chemistry showed GFR of 50, creatinine of 1.7. Patient received a L of fluids in ER. Patient aware of renal function. No electrolyte imbalance, negative lipase, negative liver enzymes. Urinalysis with normal leukocyte esterase, no nitrites, some occult blood. Patient reports improving in pain. Continues in no acute distress nontoxic appearance. Patient instructed to follow up with his PCP. Discharge delayed due to increased symptoms in ER. Patient in the lobby for a few hours before coming in for treatment. Differential diagnosis: Kidney stones, pyelonephritis, muscle strain, dehydration Need for hospitalization: Patient does not meet criteria for hospitalization. There are no social concerns with this patient. DX & DISP Disposition: Discharge Departure Impression: Primary Impression: Right flank pain Additional Impression: CKD (chronic kidney disease) Condition: Stable Additional Instructions: Please follow up with your primary doctor in 1-2 days. Take your lab results and your CT by evaluated by your primary doctor. Please return to ER if symptoms worsen. FOLLOW-UP WITH PRIMARY CARE PROVIDER IN 1 TO 2 DAYS. TAKE MEDICATIONS DIRECTED HERE IN THE EMERGENCY ROOM. OKAY TO CONTINUE HOME MEDICATIONS UNLESS OTHERWISE DISCUSSED DURING YOUR VISIT IN THE EMERGENCY ROOM TODAY. RETURN TO YOUR NEAREST EMERGENCY ROOM IF SYMPTOMS WORSEN OR IF THERE IS NO IMPROVEMENT. CALL 911 IF YOU NEED IMMEDIATE ASSISTANCE. TAKE TYLENOL OR MOTRIN [id number] NEEDED AND IF NO CONTRAINDICATIONS ARE PRESENT. INCREASE ORAL HYDRATION. A WOUND CULTURE OR URINE CULTURE WAS ORDERED HERE IN THE EMERGENCY ROOM DEPARTMENT PLEASE FOLLOW-UP WITH PRIMARY CARE PROVIDER AND ADVISE THEM TO GET REPEAT PORTS FROM OUR FACILITY. IF YOU HAD ANY RENITA WRAP/SPLINTS THAT WERE APPLIED HERE, PLEASE DO NOT REMOVE THEM UNTIL YOU SEE YOUR PRIMARY CARE OR SPECIALTY. Referrals: FLORIN SHEEHAN MD (PCP) Time of Disposition: 19:50 I have reviewed the case, and I agree with, Diagnosis and Plan CAREN VALEIRO Jan 11, 2025 17:30
[2025-01-11 17:43] LABS: BASOPHILS # (AUTO) 0.04 K/uL (0.00-0.20); BASOPHILS % (AUTO) 0.4 % (0.0-5.0); EOSINOPHILS % (AUTO) 1.1 % (0.0-8.0); HEMATOCRIT 41.8 % (42-54); IMMATURE GRANULOCYTE ABSOLUTE 0.02 K/uL (0-1); LYMPHOCYTES # (AUTO) 3.5 K/uL (1.0-4.8); LYMPHOCYTES % (AUTO) 37.7 % (21.0-51.0); MEAN CORPUSCULAR HEMOGLOBIN 29.5 pg (27.0-33.0); MEAN CORPUSCULAR HGB CONC 33.5 g/dL (32.0-36.0); MONOCYTES # (AUTO) 0.6 K/uL (0.1-1.0); NEUTROPHILS # (AUTO) 4.9 K/uL (1.8-7.7); NEUTROPHILS % (AUTO) 53.6 % (40.0-77.0); PLATELET COUNT (AUTO) 238 K/uL (130-400); RED BLOOD CELL COUNT(AUTO) 4.75 MIL/uL (4.50-6.20); RED CELL DISTRIBUTION WIDTH 12.7 % (11.0-15.5); WHITE BLOOD COUNT (AUTO) 9.2 K/uL (4.8-10.8)
[2025-01-11 17:52] LABS: CREATININE 1.7 mg/dL (0.5-1.3); POTASSIUM 3.7 mmol/L (3.5-5.1)
[2025-01-11 17:56] LABS: ALBUMIN 4.2 g/dL (3.5-5.0); BILIRUBIN,DIRECT 0.1 mg/dL (0.0-0.3); BILIRUBIN,TOTAL 0.3 mg/dL (0.2-1.0); TOTAL PROTEIN, SERUM 7.8 g/dL (6.0-8.3)
[2025-01-11] MEDS: 0.9%NACL 1000ML 1,000 ML IV SCH (17:57)
[2025-01-11] MEDS: ketOROlac 30MG VIAL (30MG/ML) IVP SCH (17:57)
[2025-01-11 19:30] LABS: APPEARANCE,URINE CLEAR (CLEAR); BILIRUBIN,URINE NEGATIVE (NEGATIVE); COLOR,URINE LIGHT-YELLOW (YELLOW); GLUCOSE, URINE (UA) NEGATIVE (NEGATIVE); KETONES,URINE NEGATIVE (NEGATIVE); LEUKOCYTE ESTERASE ,URINE NEGATIVE Leu/uL (NEGATIVE); NITRATE,URINE NEGATIVE (NEGATIVE); PROTEIN,URINE NEGATIVE (NEGATIVE); UROBILINOGEN,URINE 0.2 mg/dL (0.2-1.0)
[2025-01-11 19:31] LABS: ADD UA MICROSCOPIC YES
[2025-01-11 19:32] LABS: MUCUS,URINE RARE LPF (None Seen); SQUAMOUS EPITHELIAL CELL,UR RARE /HPF (0-2); WBC,URINE 0-1 /HPF (0-1)
== END 2025-01-11 20:08 | disposition home or self-care (01) ==
LOC: EDH 14:40
DX: I12.9 Hypertensive chronic kidney disease with stage 1 through stage 4 chronic kidney disease, or unspecified chronic kidney disease (principal); E11.22 Type 2 diabetes mellitus with diabetic chronic kidney disease; N18.9 Chronic kidney disease, unspecified; R10.9 Unspecified abdominal pain; E66.9 Obesity, unspecified; E78.00 Pure hypercholesterolemia, unspecified; Z79.1 Long term (current) use of non-steroidal anti-inflammatories (NSAID); Z79.899 Other long term (current) drug therapy; Z68.41 Body mass index [BMI] 40.0-44.9, adult
CPT/HCPCS: 99284; 74176; 96374; 96361; 80076; 80048; 83690; 85025; 81001; 36415; J1885; J7030

== ENCOUNTER 2025-06-10 13:11 | Emergency (ER) | payer BC ==
[~2025-06-10] VITALS: Ht 165.1 cm; Wt 117.9 kg
--- NOTE | 2025-06-10 13:22 | ERN ---
ED Note History of Present Illness Stated Complaint: HIGH AND LOW BACK PAIN,NAUSEA Chief Complaint: Back Pain-No Injury Time Seen by MD: 13:12 Dictation: PATIENT IS A 45-YEAR-OLD MALE COMING IN TODAY WITH COMPLAINTS OF LOWER THORACIC PAIN HE HAS HAD FOR SEVERAL MONTHS. HE STATES HE HAD AN INJURY IN [place] HAD PHYSICAL THERAPY COMPLETED THEN HE MOVED TO [place] AND JUST COMPLETED PHYSICAL THERAPY HERE WITH HIS PRIMARY CARE DOCTOR. STATES HE SAW HIS PRIMARY CARE DOCTOR YESTERDAY WHO [facility] PUT HIM ON METHOCARBAMOL AND DECADRON DOSEPAK. THEY DID NOT PRESCRIBE ANYTHING FOR PAIN, HE IS REQUESTING AN MRI IN THE EMERGENCY ROOM. NO CHANGE IN BOWEL OR BLADDER FUNCTION. GAIT IS STEADY TO TRIAGE. STATES HE HAS A HISTORY OF THREE HERNIATED THORACIC DISC. Allergies: Coded Allergies: No Known Drug Allergies (Verified Allergy, Unknown, 09/01/22) Home Meds Active Scripts Dicyclomine HCl (Bentyl) 20 Mg Tab, 20 MG PO Q6HPRN PRN for ABDOMINAL CRAMPS, #30 TAB Prov:PASCALE BYERS NP 01/03/25 Omeprazole (Omeprazole) 40 Mg Capsule.dr, 1 CAP PO DAILY for 30 Days, #30 CAP 0 Refills Prov:PASCALE BYERS NP 01/03/25 Cyclobenzaprine HCl (Flexeril) 10 Mg Tab, 10 MG PO BID for muscle sstiffness for 5 Days, #10 TAB 0 Refills Prov:MAIA GARCIA 09/16/24 Ketorolac Tromethamine (Ketorolac Tromethamine) 10 Mg Tablet, 10 MG PO BID for 5 Days, #10 TAB Prov:MAIA GARCIA 09/16/24 Meloxicam, Submicronized (Meloxicam) 10 Mg Capsule, 10 MG PO DAILY, #30 CAP Prov:YONATAN EVANS MD 03/12/24 Past Medical History Past Medical History: Diabetes-Type II, Gallstones, High Cholesterol, Hypertension, Other Additional Past Medical Hx: Lumbar Spine Herniated Discs, Obesity Surgical History: Other Surgical History Other: EYE,COLONOSCOPY,EGD Family History: Negative Social History: Negative, Lives with family RN Note Reviewed/Agreed w/PFSH: Yes Review of System Dictation CONSTITUTIONAL: NEGATIVE EXCEPT FOR HPI HEAD/FACE: NEGATIVE EXCEPT FOR HPI EENT: NEGATIVE EXCEPT FOR HPI RESPIRATORY: NEGATIVE EXCEPT FOR HPI GASTROINTESTINAL/ABDOMINAL: NEGATIVE EXCEPT FOR HPI GENITOURINARY: NEGATIVE EXCEPT FOR HPI MUSCULOSKELETAL: NEGATIVE EXCEPT FOR HPI LOW THORACIC BACK PAIN INTEGUMENTARY: NEGATIVE EXCEPT FOR HPI NEUROLOGICAL/PSYCH: NEGATIVE EXCEPT FOR HPI HEMATOLOGIC/LYMPHATIC: NEGATIVE EXCEPT FOR HPI ALL SYSTEMS NEGATIVE, EXCEPT NOTED ABOVE. 13 POINT REVIEW OF SYSTEMS ASSESSED AND ALL NEGATIVE EXCEPT FOR ABOVE. Initial Vital Sign VS Vital Signs Date Time Temp Pulse Resp B/P (MAP) Pulse Ox O2 Delivery O2 Flow Rate FiO2 06/10/25 13:14 97.9 74 16 135/82 99 Room Air 0 06/10/25 13:27 21 Physical Exam Dictation VITAL SIGNS REVIEWED GENERAL APPEARANCE: ALERT, ORIENTED X 3, MODERATE ACUTE DISTRESS, WELL DEVELOPED, NOURISHED. OBESE HEAD AND FACE: NON-TRAUMATIC. EYES: PERRL, PINK CONJUNCTIVAS, EYELID NO TRAUMA, ANTERIOR CHAMBER WITH ARCUS SENILIS. EARS: PINNAS INTACT AND NO SIGNS OF TRAUMA OR ERYTHEMA EAR CANALS CLEAR AND NO DISCHARGE TM NO ERYTHEMA NOSE: NO DISCHARGE, NO BLEEDING. OROPHARYNX: MOUTH NORMAL, TONGUE PINK, PHARYNX CLEAR,NO ERYTHEMA, TONSILS NO EXUDATES, NO ABSCESSES NOTED, MUCOUS MEMBRANE MOIST NECK: SUPPLE, NON-TENDER, NO THYROMEGALY, NO MASSES, NO JVD, NO BRUITS BREAST:DEFERRED CHEST:NO TENDERNESS, NO CREPITUS, NO PARADOXICAL MOVEMENT, NO RETRACTIONS LUNGS:CLEAR, WELL-VENTILATED, SYMMETRIC, NO RALES, NO WHEEZING, NO RHONCHI, NO STRIDOR, GOOD BREATH SOUNDS BILATERALLY HEART: REGULAR RATE, REGULAR RHYTHM, NO MURMUR, NO GALLOPS VASCULAR: NO PERIPHERAL EDEMA, ABDOMEN: SOFT, POSITIVE BOWEL SOUNDS, NONDISTENDED, NO GUARDING, NONTENDER, NO REBOUND, NO MASSES NO HEPATOMEGALY, NO SPLENOMEGALY, NO RUSSO'S SIGN, NO HERNIAS. RECTAL: DEFERRED GENITAL: DEFERRED NEUROLOGICAL: NORMAL SPEECH, MOTOR FUNCTION INTACT, SENSORY FUNCTION INTACT MUSCULOSKELETAL: NECK NONTENDER, FULL RANGE OF MOTION, BACK DIFFUSE LOWER THORACIC TENDERNESS. NO STEP-OFFS. FULL RANGE OF MOTION, NEGATIVE STRAIGHT LEG RAISE BILATERALLY 10 EXTREMITIES: NONTENDER, FULL RANGE OF MOTION SKIN: COLOR PINK, DRY, NO TURGOR, NO RASH, NO LACERATIONS, NO ABRASIONS, NO CONTUSIONS. LYMPHATIC: DEFERRED Results (Laboratory/Radiology) Laboratory/Radiology 1455/THORACIC SPINE FILM DEMONSTRATES DEGENERATIVE CHANGES ONLY. Labs Reviewed?: Yes ED Course ED Course Orders Procedure Category Date Status Time Ketorolac 60mg/2ml PHA 06/10/25 Complete (Toradol 60mg/2ml) 13:30 Thoracic Spine 2vws RAD 06/10/25 Resulted 13:17 Current Medications Medications (Trade) Dose Ordered Sig/Harman Route PRN Reason Start Time Stop Time Status Last Admin Dose Admin Ketorolac Tromethamine (toRADol 60MG/ 2ML) 60 mg ONCE ONCE IM 06/10/25 13:30 06/10/25 13:31 DC 06/10/25 13:32 Vital Signs Date Time Temp Pulse Resp B/P (MAP) Pulse Ox O2 Delivery O2 Flow Rate FiO2 06/10/25 13:27 97.9 74 16 135/82 99 Room Air* 0 21 06/10/25 13:14 97.9 74 16 135/82 99 Room Air 0 Medical Decision Making [facility] MEDICAL DISCHARGE MAKING BASED ON EMPIRIC TREATMENT FOR CHRONIC THORACIC SPINE PAIN PLAIN FILM X-RAY DEMONSTRATES DEGENERATIVE CHANGES ONLY PATIENT WILL REQUIRE MRI IN THE FUTURE TO RULE OUT DISC DISEASE. PATIENT ON METHOCARBAMOL/MEDROL DOSEPAK SENT HOME WITH FLEXERIL TOLD SEE HIS PRIMARY CARE DOCTOR AT [facility] FOR RECOMMENDED MRI DX & DISP Disposition: Discharge Departure Impression: Primary Impression: Acute exacerbation of chronic low back pain Condition: Stable Scripts Cyclobenzaprine HCl (Cyclobenzaprine HCl) 10 Mg Tablet 1 TAB PO TID for muscle spasms for 10 Days, #30 TAB 0 Refills Prov: ZEESHANPASCALE BUSINESS OFFICE TECHNOLOGY INSTRUCTOR 06/10/25 Additional Instructions: FOLLOW-UP WITH PRIMARY CARE PROVIDER IN 1 TO 2 DAYS. TAKE MEDICATIONS DIRECTED HERE IN THE EMERGENCY ROOM. OKAY TO CONTINUE HOME MEDICATIONS UNLESS OTHERWISE DISCUSSED DURING YOUR VISIT IN THE EMERGENCY ROOM TODAY. RETURN TO YOUR NEAREST EMERGENCY ROOM IF SYMPTOMS WORSEN OR IF THERE IS NO IMPROVEMENT. CALL 911 IF YOU NEED IMMEDIATE ASSISTANCE. TAKE TYLENOL OR MOTRIN [id number] NEEDED AND IF NO CONTRAINDICATIONS ARE PRESENT. INCREASE ORAL HYDRATION. A WOUND CULTURE OR URINE CULTURE WAS ORDERED HERE IN THE EMERGENCY ROOM DEPARTMENT PLEASE FOLLOW-UP WITH PRIMARY CARE PROVIDER AND ADVISE THEM TO GET REPEAT PORTS FROM OUR FACILITY. IF YOU HAD ANY RENITA WRAP/SPLINTS THAT WERE APPLIED HERE, PLEASE DO NOT REMOVE THEM UNTIL YOU SEE YOUR PRIMARY CARE OR SPECIALTY. CONTINUE METHOCARBAMOL AND MEDROL DOSEPAK BY YOUR PRIMARY CARE DOCTOR. TAKE FLEXERIL EVERY 8 HOURS WITH FOOD FOR THE NEXT THREE DAYS. WARM COMPRESSES TO PAIN THREE TO 4 TIMES A DAY. NO LIFTING GREATER THAN 10 LB AND SEE YOUR PRIMARY CARE DOCTOR FOR REFERRAL AND MANAGEMENT Referrals: FLORIN SHEEHAN MD (PCP) Time of Disposition: 14:46 and I agree with, Diagnosis and Plan PASCALE BYERS BUSINESS OFFICE TECHNOLOGY INSTRUCTOR Jun 10, 2025 13:22
--- NOTE | 2025-06-10 14:41 | HMCIMG ---
EXAM: CR Thoracic Spine, 2 View. CLINICAL HISTORY: CHRONIC LOW THORACIC PAIN. COMPARISON: None provided. FINDINGS: BONES: No acute fracture or aggressive appearing osseous lesion. DISCS / DEGENERATIVE CHANGES: Mild degenerative changes with disc space narrowing and small osteophytes. SOFT TISSUES: The paraspinal soft tissue lines are unremarkable. The visualized lungs are clear. MISCELLANEOUS: Visualization of the upper thoracic spine is limited on the lateral view by overlying structures. IMPRESSION: No fracture or dislocation in the thoracic spine. Mild degenerative change. /[place]
[2025-06-10] MEDS ORDERED: CYCL-309 PO (14:47)
[2025-06-10 14:56] VITALS: BP 132/74; PULSE 76; RESP 16; TEMP 97.9; O2SAT 99
== END 2025-06-10 14:58 | disposition home or self-care (01) ==
LOC: EDH 13:11
DX: G89.29 Other chronic pain (principal); M54.50 Low back pain, unspecified; E11.9 Type 2 diabetes mellitus without complications; E66.9 Obesity, unspecified; E78.00 Pure hypercholesterolemia, unspecified; I10 Essential (primary) hypertension; Z79.1 Long term (current) use of non-steroidal anti-inflammatories (NSAID); Z79.899 Other long term (current) drug therapy
CPT/HCPCS: 99284; 72070; 96372; J1885

== ENCOUNTER 2025-11-06 17:22 | Emergency (ER) | payer BC ==
[~2025-11-06] VITALS: Ht 165.1 cm; Wt 113.4 kg
[~2025-11-06 17:22] MED LIST changes: +CYCL-309 PO
[2025-11-06 17:25] VITALS: BP 151/87; PULSE 88; RESP 20; TEMP 98.5
--- NOTE | 2025-11-06 18:55 | HMCIMG ---
EXAM: CR Chest, 1 View. CLINICAL HISTORY: cough COMPARISON: None provided. FINDINGS: LUNGS: The lungs show no infiltrate or other acute finding. PLEURAL SPACES: No pleural effusion or pneumothorax. MEDIASTINUM: The cardiomediastinal silhouette is within normal limits. BONES: No acute osseous abnormality. IMPRESSION: No acute cardiopulmonary pathology is evident. /[place]
--- NOTE | 2025-11-06 19:15 | NUR ---
COVID, FLUL AND STREP SWABS COLLECTED AND SENT
[2025-11-06 19:31] LABS: RAPID GROUP A STREP negative (NEGATIVE)
[2025-11-06 19:41] LABS: COVID19 (SARS ANTIGEN RAPID) PRESUMPTIVE NEGATIVE (NEGATIVE); INFLUENZA TYPE A Negative For Type A (NEGATIVE); INFLUENZA TYPE B Negative For Type B (NEGATIVE)
--- NOTE | 2025-11-06 20:47 | ERN ---
ED Note History of Present Illness Stated Complaint: PRODUCTIVE COUGH Chief Complaint: Cough Time Seen by MD: 17:25 Time Seen by Midlevel: 17:25 Dictation: The patient is a 45-year-old male with a history of diabetes, hypertension, hyperlipidemia who presents to the emergency department with complaints of cough and congestion for the last two days. Patient reports he occasionally spits out light colored phlegm. Patient also reported chills and sweating. Denies any fever though. Reports that at night he occasionally wheezes and he uses his inhaler. Patient denies any chest pain or shortness of breath. Allergies: Coded Allergies: No Known Drug Allergies (Verified Allergy, Unknown, 09/01/22) Home Meds Active Scripts Cyclobenzaprine HCl (Cyclobenzaprine HCl) 10 Mg Tablet, 1 TAB PO TID for muscle spasms for 10 Days, #30 TAB 0 Refills Prov:PASCALE BYERSP 06/10/25 Dicyclomine HCl (Bentyl) 20 Mg Tab, 20 MG PO Q6HPRN PRN for ABDOMINAL CRAMPS, #30 TAB Prov:PASCALE BYERSP 01/03/25 Omeprazole (Omeprazole) 40 Mg Capsule.dr, 1 CAP PO DAILY for 30 Days, #30 CAP 0 Refills Prov:PASCALE BYERSP 01/03/25 Cyclobenzaprine HCl (Flexeril) 10 Mg Tab, 10 MG PO BID for muscle sstiffness for 5 Days, #10 TAB 0 Refills Prov:MAIA GARCIA PAC 09/16/24 Ketorolac Tromethamine (Ketorolac Tromethamine) 10 Mg Tablet, 10 MG PO BID for 5 Days, #10 TAB Prov:MAIA GARCIA PAC 09/16/24 Meloxicam, Submicronized (Meloxicam) 10 Mg Capsule, 10 MG PO DAILY, #30 CAP Prov:YONATAN EVANS MD 03/12/24 Past Medical History Past Medical History: Diabetes-Type II, Gallstones, High Cholesterol, Hypertension, Other Additional Past Medical Hx: Lumbar Spine Herniated Discs, Obesity Surgical History: Other Surgical History Other: EYE,COLONOSCOPY,EGD Family History: Negative Social History: Negative, Lives with family RN Note Reviewed/Agreed w/PFSH: Yes Review of System Dictation Constitutional: Negative for fever and weight loss positive for chills Eyes: Negative for injury, pain,redness, and discharge ENT: Negative for injury,pain or swelling Cardiovascular: Negative for chest pain, palpitations, and edema Respiratory: Negative for shortness of breath,, and wheezing, positive for cough and congestion Abdomen/GI: Negative for abdominal pain, nausea, vomiting, diarrhea, and constipation Back: Negative for injury and pain : Negative for injury, bleeding and discharge MS/Extremity: Negative for injury and deformity Skin: Negative for rash, and discoloration Neuro: Negative for headache, weakness, numbness, tingling, and seizure Psych: Negative for suicide ideation, homicidal ideation, and hallucinations Initial Vital Sign VS Vital Signs Date Time Temp Pulse Resp B/P (MAP) Pulse Ox O2 Delivery O2 Flow Rate FiO2 11/06/25 17:25 98.4 88 20 151/87 99 Room Air 0 Physical Exam Dictation Vital Signs reviewed General Appearance: Alert, oriented x 3, no acute distress, well developed, nourished. Head and Face: non-traumatic. Eyes: PERRL, pink conjunctivas, eyelid no trauma, anterior chamber with arcus senilis. Ears: Pinnas intact and no signs of trauma or erythema ear canals clear and no discharge TM no erythema Nose: No discharge, no bleeding. Oropharynx: Mouth normal, tongue pink. pharynx clear,no erythema, tonsils no exudates, no abscesses noted, mucous membrane moist Neck: Supple, non-tender, no thyromegaly, no masses, no JVD, no bruits Breast:Deferred Chest:No tenderness, no crepitus, no paradoxical movement, no retractions Lungs:Clear, well-ventilated, symmetric, no rales, no wheezing, no rhonchi, no stridor, good breath sounds bilaterally Heart: Regular rate, regular rhythm, no murmur, no gallops Vascular: no peripheral edema, Abdomen: Soft, positive bowel sounds, nondistended, no guarding, nontender, no rebound, no masses no hepatomegaly, no splenomegaly, no Fraga's sign, no hernias. Rectal: Deferred Genital: Deferred Neurological: Normal speech, motor function intact, sensory function intact Musculoskeletal: Neck nontender, full range of motion, back nontender, full range of motion, Extremities: nontender, full range of motion Skin: Color pink, dry, no turgor, no rash, no lacerations, no abrasions, no con tusions. Lymphatic: Deferred Results (Laboratory/Radiology) Laboratory/Radiology Laboratory Tests Test 11/06/25 19:15 Influenza Type A Antigen Negative For Type A Influenza Type B Antigen Negative For Type B SARS-CoV-2 Antigen (Rapid) PRESUMPTIVE NEGATIVE Group A Streptococcus Rapid negative (NEGATIVE) REASON: cough ORDERING PHYSICIAN: CAREN VALERIO PROCEDURE: CXR1VW - CHEST 1VW EXAM: CR Chest, 1 View. CLINICAL HISTORY: cough COMPARISON: None provided. FINDINGS: LUNGS: The lungs show no infiltrate or other acute finding. PLEURAL SPACES: No pleural effusion or pneumothorax. MEDIASTINUM: The cardiomediastinal silhouette is within normal limits. BONES: No acute osseous abnormality. IMPRESSION: No acute cardiopulmonary pathology is evident. /[place] Labs Reviewed?: Yes ED Course ED Course Orders Procedure Category Date Status Time Covid19 (Sars Antigen LAB 11/06/25 Complete Rapid) 17:33 Influenza Type A & B, LAB 11/06/25 Complete Rapid 17:33 Rapid (Group A Strep) LAB 11/06/25 Complete 17:33 Chest 1vw RAD 11/06/25 Resulted 17:33 Vital Signs Date Time Temp Pulse Resp B/P (MAP) Pulse Ox O2 Delivery O2 Flow Rate FiO2 11/06/25 17:25 98.4 88 20 151/87 99 Room Air 0 Medical Decision Making MDM The patient is a 45-year-old male with a history of diabetes, hypertension, hyperlipidemia who presents to the emergency department with complaints of cough and congestion for the last two days. Patient reports he occasionally spits out light colored phlegm. Patient also reported chills and sweating. Denies any fever though. Reports that at night he occasionally wheezes and he uses his inhaler. Patient denies any chest pain or shortness of breath. Serology was negative. Chest x-ray showed no consolidation. On physical exam patient is in no acute distress, nontoxic appearance, lungs are clear. Vital signs were stable with no hypoxemia. Patient denies any chest pain or shortness of breath. Skin is warm and dry. Patient has symptoms consistent with a an upper respiratory infection. Patient will be discharged to follow up with the PCP. Differential diagnosis: Pneumonia, upper respiratory infection, influenza Need for hospitalization: Patient does not meet criteria for hospitalization. There are no social concerns with this patient. DX & DISP Disposition: Discharge Departure Impression: Primary Impression: Upper respiratory infection with cough and congestion Condition: Stable Scripts Guaifenesin/Dextromethorphan (Robitussin Cough-Chest Dm Liq) 100 Mg-5 Mg/5 Ml Liquid 10 ML PO Q8H for 7 Days, #210 ML 0 Refills Prov: CAREN VALERIO 11/06/25 Additional Instructions: Your labs were negative for flu COVID and strep. Your chest x-ray did not show any pneumonia. Upper respiratory infection. Please follow up with your primary doctor in 1-2 days. If symptoms worsen please return to ER. FOLLOW-UP WITH PRIMARY CARE PROVIDER IN 1 TO 2 DAYS. TAKE MEDICATIONS DIRECTED HERE IN THE EMERGENCY ROOM. OKAY TO CONTINUE HOME MEDICATIONS UNLESS OTHERWISE DISCUSSED DURING YOUR VISIT IN THE EMERGENCY ROOM TODAY. RETURN TO YOUR NEAREST EMERGENCY ROOM IF SYMPTOMS WORSEN OR IF THERE IS NO IMPROVEMENT. CALL 911 IF YOU NEED IMMEDIATE ASSISTANCE. TAKE TYLENOL [id number] NEEDED AND IF NO CONTRAINDICATIONS ARE PRESENT. INCREASE ORAL HYDRATION. A WOUND CULTURE OR URINE CULTURE WAS ORDERED HERE IN THE EMERGENCY ROOM DEPARTMENT PLEASE FOLLOW-UP WITH PRIMARY CARE PROVIDER AND ADVISE THEM TO GET REPEAT PORTS FROM OUR FACILITY. IF YOU HAD ANY RENITA WRAP/SPLINTS THAT WERE APPLIED HERE, PLEASE DO NOT REMOVE THEM UNTIL YOU SEE YOUR PRIMARY CARE OR SPECIALTY. Referrals: FLORIN SHEEHAN MD (PCP) Time of Disposition: 20:50 I have reviewed the case, and I agree with, Diagnosis and Plan CAREN VALERIO Nov 06, 2025 20:46
[2025-11-06] MEDS ORDERED: GUAI237L82 PO (20:52)
== END 2025-11-06 21:00 | disposition home or self-care (01) ==
LOC: EDH 17:22
DX: J06.9 Acute upper respiratory infection, unspecified (principal); Z20.822 Contact with and (suspected) exposure to COVID-19; E11.9 Type 2 diabetes mellitus without complications; E78.00 Pure hypercholesterolemia, unspecified; I10 Essential (primary) hypertension; E66.9 Obesity, unspecified; Z79.1 Long term (current) use of non-steroidal anti-inflammatories (NSAID); Z79.899 Other long term (current) drug therapy; Z68.41 Body mass index [BMI] 40.0-44.9, adult
CPT/HCPCS: 71045; 87426; 87804; 87880; 99283